=== PATIENT | female | born 1990 | race Caucasian/White ===

== ENCOUNTER 2021-04-12 12:51 | Emergency (ER) | payer OTHER ==
[~2021-04-12] VITALS: Ht 152.4 cm; Wt 67.1 kg
--- NOTE | 2021-04-12 17:36 | NUR ---
MED STUDENT AT BEDSIDE
--- NOTE | 2021-04-12 18:19 | NUR ---
Patient given discharge instructions and they have confirmed that they understand the instructions. Patient ambulatory with steady gait.
[2021-04-12 18:20] VITALS: BP 139/76
== END 2021-04-12 18:22 | disposition home or self-care (01) ==
LOC: ED 18:10
DX: G44.319 Acute post-traumatic headache, not intractable (principal)
CPT/HCPCS: 99283